=== PATIENT | female | born 1975 | race Caucasian/White ===

== ENCOUNTER 2021-01-16 06:51 | Outpatient (REF) | payer OTHER, SELFPAY ==
[2021-01-16 11:36] LABS: Glucose Urine UA NEG (NEG); Leukocyte Esterase Urine NEG (NEG); Nitrite Urine NEG (NEG); Specific Gravity - Urine 1.025 (1.005-1.025); Urine Blood NEG (NEG); Urine Ketones NEG (NEG); Urine Protein NEG (NEG-TRACE)
[2021-01-16 11:49] LABS: Appearance Urine HAZY; Color Urine YELLOW
[2021-01-16 12:14] LABS: Bacteria Urine TRACE /LPF; Mucus Urine TRACE /LPF; RBC Urine 0 /HPF (0); Squamous Epithelial Cell Urine 2+ /LPF; WBC Urine 0 /HPF (0-4)
[2021-01-16 12:22] LABS: Alanine Aminotransferase 11 U/L (0-31); Albumin Level 4.1 g/dL (3.5-5.0); Alkaline Phosphatase 80 U/L (39-117); Anion Gap 13 (12-20); Aspartate Amino Transferase 13 U/L (5-31); Bilirubin Total 0.6 mg/dL (0.0-1.0); Blood Urea Nitrogen 10 mg/dL (9-16); Calcium 9.1 mg/dL (8.4-10.2); Carbon Dioxide 28 mmol/L (22-29); Chloride 103 mmol/L (96-108); Cholesterol 145 mg/dL; Estimated Glomerular Filt Rate > 60; Glucose Fasting 77 mg/dL (60-99); HDL Cholesterol 62 mg/dL; LDL Cholesterol Calculated 72 mg/dl; Potassium 4.7 mmol/L (3.3-5.1); Sodium 139 mmol/L (135-145); Total Protein 6.6 g/dL (6.5-8.0); Triglycerides 56 mg/dL
[2021-01-16 12:24] LABS: TSH reflex Free T4 1.84 uIU/mL (0.32-4.0); Vitamin D 25-OH Total 20.2 ng/mL (>30)
== END 2021-01-16 06:52 | disposition home or self-care (01) ==
LOC: HO.HMGCLDS 06:51
PROVIDERS: PCP Nurse Practitioner Family; Visit Provider Nurse Practitioner Family
DX: Z00.00 Encounter for general adult medical examination without abnormal findings (principal); Z13.21 Encounter for screening for nutritional disorder
CPT/HCPCS: 36415; 80053; 80061; 81001; 82306; 84443

== ENCOUNTER 2022-01-12 08:06 | Outpatient (REF) | payer OTHER, SELFPAY ==
[2022-01-12 11:13] LABS: MANUAL DIFF FLAG NO
[2022-01-12 11:14] LABS: Basophils Percent Auto 0.5 % (0-2); Eosinophils Absolute Auto 0.1 X10*3/uL (0.0-0.4); Eosinophils Percent Auto 1.8 % (0-4); Hematocrit 42.4 % (37.0-47.0); Hemoglobin 13.7 g/dl (12.0-16.0); Imm Gran Abs Auto 0.02 X10*3/uL (0.00-0.03); Imm Gran Pct Auto 0.4 % (0.0-0.4); Lymphocytes Absolute Auto 1.7 X10*3/uL (1.2-4.9); Lymphocytes Percent Auto 30.7 % (20-40); Mean Corpuscular HGB Conc 32.3 g/dl (31.0-35.0); Mean Corpuscular Hemoglobin 27.7 pg (27.0-33.0); Mean Corpuscular Volume 85.7 fL (80.0-98.0); Mean Platelet Volume 11.4 fL (9.4-12.3); Monocytes Absolute Auto 0.5 X10*3/uL (0.1-1.2); Monocytes Percent Auto 9.4 % (2-11); Neutrophils Absolute Auto 3.2 x10*3/uL (2.0-8.3); Neutrophils Percent Auto 57.2 % (45-73); Platelet Count 289 X10*3/uL (160-400); Red Blood Count 4.95 X10*6/uL (4.20-5.50); Red Cell Distribution Width 13.3 % (11.0-16.0); White Blood Count 5.7 X10*3/uL (4.8-10.8)
[2022-01-12 11:18] LABS: Appearance Urine CLEAR; Color Urine YELLOW; Glucose Urine UA NEG (NEG); Leukocyte Esterase Urine NEG (NEG); Nitrite Urine NEG (NEG); PH 6.5 (5.0-8.0); Specific Gravity - Urine 1.015 (1.005-1.025); Urine Blood NEG (NEG); Urine Ketones NEG (NEG); Urine Protein NEG (NEG-TRACE)
[2022-01-12 11:46] LABS: Alanine Aminotransferase 13 U/L (0-31); Albumin Level 4.1 g/dL (3.5-5.0); Alkaline Phosphatase 69 U/L (39-117); Anion Gap 12 (12-20); Aspartate Amino Transferase 11 U/L (5-31); Bilirubin Total 0.4 mg/dL (0.0-1.0); Blood Urea Nitrogen 12 mg/dL (9-16); Calcium 9.2 mg/dL (8.4-10.2); Carbon Dioxide 26 mmol/L (22-29); Chloride 105 mmol/L (96-108); Cholesterol 165 mg/dL; Estimated Glomerular Filt Rate > 60; Glucose Fasting 79 mg/dL (60-99); HDL Cholesterol 68 mg/dL; LDL Cholesterol Calculated 84 mg/dl; Potassium 4.3 mmol/L (3.3-5.1); Sodium 139 mmol/L (135-145); Total Protein 6.8 g/dL (6.5-8.0); Triglycerides 66 mg/dL
[2022-01-12 12:08] LABS: TSH reflex Free T4 2.28 uIU/mL (0.32-4.0)
== END 2022-01-12 08:07 | disposition home or self-care (01) ==
LOC: HO.HMGCLDS 08:06
PROVIDERS: PCP Nurse Practitioner Family; Visit Provider Nurse Practitioner Family
DX: Z00.00 Encounter for general adult medical examination without abnormal findings (principal)
CPT/HCPCS: 36415; 80053; 80061; 81003; 84443; 85025

== ENCOUNTER 2022-02-06 07:56 | Outpatient (REF) | payer OTHER, SELFPAY ==
--- NOTE | ~2022-02-06 | MM_ITS ---
EXAMINATION: MM SCREENING DIGITAL BREAST TOMOSYNTHESIS, BILATERAL CLINICAL INFORMATION: Screening. Asymptomatic. The lifetime risk of breast cancer based on the Tyrer-Cuzick Model is 8%. COMPARISON: Outside mammography: 06/15/2020, 02/22/2019 ([facility]). TECHNIQUE: Digital breast tomosynthesis is performed in both the craniocaudal and mediolateral oblique views along with computer-aided detection (CAD). Synthesized 2D images are generated from the tomosynthesis. FINDINGS: The breasts are heterogeneously dense, which may obscure small masses (ACR BI-RADS breast composition Category c). There are no significant masses, abnormal calcifications, or other abnormalities. Parenchymal pattern is similar to prior outside exams. The axilla and skin contours are unremarkable. MM/MM tomosynthesis screening BI IMPRESSION: No mammographic evidence of malignancy. ASSESSMENT: BI-RADS 1: Negative RECOMMENDATION: Routine annual mammography screening. This patient's information was entered into a reminder system with a target due date for their next mammogram.
== END 2022-02-06 07:57 | disposition home or self-care (01) ==
LOC: HO.MAMMO 07:56
PROVIDERS: PCP Nurse Practitioner Family; Visit Provider Nurse Practitioner Family
DX: Z12.31 Encounter for screening mammogram for malignant neoplasm of breast (principal)
CPT/HCPCS: 77063; 77067

== ENCOUNTER 2022-12-05 08:54 | Outpatient (REF) | payer OTHER, SELFPAY ==
[2022-12-05 11:09] LABS: MANUAL DIFF FLAG NO
[2022-12-05 11:21] LABS: Basophils Percent Auto 0.7 % (0-2); Eosinophils Absolute Auto 0.1 X10*3/uL (0.0-0.4); Eosinophils Percent Auto 1.5 % (0-4); Hematocrit 42.2 % (37.0-47.0); Hemoglobin 13.6 g/dl (12.0-16.0); Imm Gran Abs Auto 0.02 X10*3/uL (0.00-0.03); Imm Gran Pct Auto 0.4 % (0.0-0.4); Lymphocytes Absolute Auto 1.5 X10*3/uL (1.2-4.9); Lymphocytes Percent Auto 28.2 % (20-40); Mean Corpuscular HGB Conc 32.2 g/dl (31.0-35.0); Mean Corpuscular Hemoglobin 27.9 pg (27.0-33.0); Mean Corpuscular Volume 86.5 fL (80.0-98.0); Mean Platelet Volume 11.5 fL (9.4-12.3); Monocytes Absolute Auto 0.5 X10*3/uL (0.1-1.2); Monocytes Percent Auto 8.6 % (2-11); Neutrophils Absolute Auto 3.3 x10*3/uL (2.0-8.3); Neutrophils Percent Auto 60.6 % (45-73); Platelet Count 297 X10*3/uL (160-400); Red Blood Count 4.88 X10*6/uL (4.20-5.50); Red Cell Distribution Width 13.7 % (11.0-16.0); White Blood Count 5.5 X10*3/uL (4.8-10.8)
[2022-12-05 11:46] LABS: Alanine Aminotransferase 13 U/L (0-31); Albumin Level 4.1 g/dL (3.5-5.0); Alkaline Phosphatase 79 U/L (39-117); Anion Gap 13 (12-20); Aspartate Amino Transferase 11 U/L (5-31); Bilirubin Total 0.5 mg/dL (0.0-1.0); Blood Urea Nitrogen 9 mg/dL (9-16); Calcium 9.1 mg/dL (8.4-10.2); Carbon Dioxide 28 mmol/L (22-29); Chloride 104 mmol/L (96-108); Estimated Glomerular Filt Rate > 60; Glucose Random 79 mg/dL (60-115); Potassium 4.6 mmol/L (3.3-5.1); Sodium 140 mmol/L (135-145); Total Protein 6.6 g/dL (6.5-8.0)
== END 2022-12-05 08:55 | disposition home or self-care (01) ==
LOC: HO.HMGCLDS 08:54
PROVIDERS: PCP Nurse Practitioner Family; Visit Provider Internal Medicine
DX: R10.9 Unspecified abdominal pain (principal); R14.3 Flatulence; R14.0 Abdominal distension (gaseous); R14.2 Eructation
CPT/HCPCS: 36415; 80053; 85025

== ENCOUNTER 2022-12-13 10:08 | Emergency (ER) | payer OTHER, SELFPAY | END 2022-12-13 11:24 | disposition left against medical advice (07) | PROVIDERS: Emergency Provider Emergency Medicine; PCP Nurse Practitioner Family | DX: R10.32 Left lower quadrant pain (principal) ==

== ENCOUNTER 2023-02-19 11:11 | Outpatient (REF) | payer OTHER, SELFPAY ==
[2023-02-19 14:21] LABS: Alanine Aminotransferase 13 U/L (0-31); Albumin Level 4.3 g/dL (3.5-5.0); Alkaline Phosphatase 67 U/L (39-117); Anion Gap 13 (12-20); Aspartate Amino Transferase 14 U/L (5-31); Bilirubin Total 0.5 mg/dL (0.0-1.0); Blood Urea Nitrogen 10 mg/dL (9-16); Calcium 9.5 mg/dL (8.4-10.2); Carbon Dioxide 26 mmol/L (22-29); Chloride 106 mmol/L (96-108); Cholesterol 156 mg/dL; Estimated Glomerular Filt Rate > 60; Glucose Fasting 86 mg/dL (60-99); HDL Cholesterol 68 mg/dL; LDL Cholesterol Calculated 79 mg/dl; Potassium 4.3 mmol/L (3.3-5.1); Sodium 141 mmol/L (135-145); Total Protein 7.1 g/dL (6.5-8.0); Triglycerides 48 mg/dL
[2023-02-19 14:40] LABS: TSH reflex Free T4 1.74 uIU/mL (0.32-4.0)
== END 2023-02-19 11:12 | disposition home or self-care (01) ==
LOC: HO.HMGCLDS 11:11
PROVIDERS: PCP Nurse Practitioner Family; Visit Provider Nurse Practitioner Family
DX: Z00.00 Encounter for general adult medical examination without abnormal findings (principal); E55.9 Vitamin D deficiency, unspecified; Z13.220 Encounter for screening for lipoid disorders; Z13.29 Encounter for screening for other suspected endocrine disorder
CPT/HCPCS: 36415; 80053; 80061; 81003; 82306; 84443; 85025

== ENCOUNTER 2023-12-27 07:35 | Outpatient (REF) | payer OTHER, SELFPAY ==
--- NOTE | ~2023-12-27 | XR_ITS ---
EXAMINATION: XR SHOULDER, LEFT CLINICAL INFORMATION: Left shoulder pain. COMPARISON: None available. TECHNIQUE: AP external rotation, Grashey, scapular Y, and axillary views of the left shoulder. FINDINGS: Glenohumeral and acromioclavicular alignment is anatomic with normal joint space. No displaced fracture or dislocation. No abnormal soft tissue calcifications. XR/XR shoulder LT min 2V IMPRESSION: No acute abnormality.
== END 2023-12-27 07:36 | disposition home or self-care (01) ==
LOC: HO.HMGCX 07:35
PROVIDERS: PCP Nurse Practitioner Family; Visit Provider Nurse Practitioner Family
DX: M25.512 Pain in left shoulder (principal)
CPT/HCPCS: 73030

== ENCOUNTER 2024-01-20 07:43 | Outpatient (REF) | payer OTHER, SELFPAY ==
--- NOTE | 2024-01-20 07:45 | EMG_ITS ---
Left median and ulnar motor and sensory studies were performed. Left median and lateral antecubital brachial and radial sensory studies were performed and needle examination was performed. IMPRESSION: 1. Mild left median neuropathy across carpal tunnel. 2. Mild left ulnar neuropathy across cubital tunnel. 3. No evidence of radiculopathy or plexopathy. MD ADA Watkins/NIRU / [id number]
== END 2024-01-20 07:44 | disposition home or self-care (01) ==
LOC: HO.NEURO 07:43
PROVIDERS: PCP Nurse Practitioner Family; Visit Provider Nurse Practitioner Family
DX: R20.0 Anesthesia of skin (principal)
CPT/HCPCS: 95886; 95910

== ENCOUNTER 2024-02-02 12:37 | Outpatient (REF) | payer OTHER, SELFPAY ==
--- NOTE | ~2024-02-02 | XR_ITS ---
EXAMINATION: XR CERVICAL SPINE CLINICAL INFORMATION: Left upper limb pain COMPARISON: None available. TECHNIQUE: 3 views of the cervical spine were obtained. FINDINGS: Vertebral bodies are well aligned and intervertebral discs are preserved. Pedicles are intact. There is very mild narrowing of C6-C7 and C7-T1 with grade 1 anterior listhesis of C7 over T1 and facets arthropathy. XR/XR cervical spine 2V IMPRESSION: Mild degenerative changes
== END 2024-02-02 12:38 | disposition home or self-care (01) ==
LOC: HO.HMGCX 12:37
PROVIDERS: PCP Nurse Practitioner Family; Visit Provider Nurse Practitioner Family
DX: G56.02 Carpal tunnel syndrome, left upper limb (principal); G56.22 Lesion of ulnar nerve, left upper limb; R20.0 Anesthesia of skin
CPT/HCPCS: 72040

== ENCOUNTER 2024-02-03 13:28 | Outpatient (AMB) | payer OTHER, SELFPAY ==
--- NOTE | 2024-02-03 14:04 | MHC.OFFVIS ---
Intake Visit Reasons: New pt - left hand numbness/ emg done Intake Note: Judy is a 49 year old right hand dominant female who presents today as a new patient for a evaluation of her left hand numbness. EMG was done on 01/20/24. She states that her numbness is off and on for a couple months. Patient reports that her numbness is worse at night or through out the day. She expresses that he main problem is in her left shoulder which has been going on since October. Pain started when she caught herself from getting up from her desk. Allergies No Known Allergies Allergy (Verified 02/03/24 14:09) HPI HPI New pt - left hand numbness/ emg done: Details: 49-year-old right hand dominant female who presents in the office today, as a new patient, for an evaluation of left hand numbness. The patient sent a message to her PCP on 12/18/2023 with a complaint of left shoulder to left elbow pain that increases at night and limited ROM. X-rays and EMG study were ordered. While in the office today the patient reports intermittent numbness for a couple of months. She claims her numbness at night and throughout the day. Patient reports her main concern is her left shoulder pain which has been present since 10/2023. She reports the pain is located on the lateral aspect of the left shoulder. She states this pain began when she caught herself getting up from her desk. FOR[facility]LY [facility], [facility] Family History Maternal Grandfather Colon cancer Social History Housing: House Alcohol intake: never Patient Tobacco Use Status: Never used Tobacco e-Cigarette/Vaping Use: Never Used Second Hand Smoke Exposure: No service: No Current occupational status: employed Current occupation: [employer] Current occupational exposures/hazards: No Cognitive needs: No Hearing needs: No Vision needs: No Review of Systems Const All systems reviewed & are unremarkable except as noted in HPI and below Physical Exam Const General: cooperative and no acute distress Orientation/consciousness: patient oriented x3 Resp Effort & Inspection: normal respiratory effort and able to speak in complete sentences Cardio Peripheral pulses: Peripheral pulses 2+ throughout Skin General skin exam: no rashes or lesions noted Neuro General: patient oriented x3 Extrem Other: Left shoulder: Forward flexion and abduction to 80 degrees. External rotation to neutral. Able to reach greater trochanter. Pain with cross-body reach. Unable to assess empty can or drop arm due to ROM restrictions. NVI. Office Procedures Joint Injection/Drain Joint Injection/Drain Primary Site: left shoulder Prep: site was prepped using aseptic technique, ethochloride spray was applied and injection warnings given Injected: 80 mg of, DepoMedrol, with 8 mL of (2% plain lido ) and in the subcromial space Approach Used: posterolateral Procedure: The patient tolerated the procedure well, but had some pain with the injection and there was some relief with the local anesthesia Coding 59164 - Large joint Procedure code (CPT) selection complete Assessment & Plan Assessment & Plan (1) Adhesive capsulitis of left shoulder: Code(s): M75.02 - Adhesive capsulitis of left shoulder Category: Medical Plan Ms. Hennessy is a 49-year-old right hand dominant female who presents in the office today, as a new patient, for an evaluation of left hand numbness. The patient sent a message to her PCP on 12/18/2023 with a complaint of left shoulder to left elbow pain that increases at night and limited ROM. X-rays and EMG study were ordered. While in the office today the patient reports intermittent numbness for a couple of months. She claims her numbness at night and throughout the day. Patient reports her main concern is her left shoulder pain which has been present since 10/2023. She reports the pain is located on the lateral aspect of the left shoulder. She states this pain began when she caught herself getting up from her desk. The patient was offered a cortisone injection in the left shoulder with 80 mg of DepoMedrol. The patient was explained the risk, benefits, and alternatives to receiving this injection. After receiving consent for the injection, the patient had the procedure done while in the office today. The patient tolerated the procedure well with no complications. A referral to physical therapy was made in the office today. Follow-up will be in six weeks, or sooner if needed EMG study of the left upper extremity, obtained on 01/20/2024, revealed: 1. Mild left median neuropathy across carpal tunnel. 2. Mild left ulnar neuropathy across cubital tunnel. 3. No evidence of radiculopathy or plexopathy. X-rays of the left shoulder, obtained on 12/27/2023, revealed: No acute fractures or dislocations. Orders: Orders PT Evaluation and Treatment Today M75.02 - Adhesive capsulitis of left shoulder Patient Instructions: Scribed by Yasmin Childs medical legal investigator, for Iraida Marisoleugenio MONTEMAYOR on 02/03/2024 at 1:41 pm, EST. Coding Level of Care Code New Pt Level 4 (09677) Diagnoses Adhesive capsulitis of left shoulder M75.02 CPT Codes Coding - 92354 Large joint: 82120 - Large joint ([id number])
== END 2024-02-03 14:51 | disposition home or self-care (01) ==
PROVIDERS: PCP Nurse Practitioner Family; Visit Provider Physician Assistant
DX: M75.02 Adhesive capsulitis of left shoulder (principal)
CPT/HCPCS: 20610; 99204

== ENCOUNTER → 2024-02-03 13:28 | Outpatient (BNVA) | payer OTHER, SELFPAY | PROVIDERS: PCP Nurse Practitioner Family; Visit Provider Physician Assistant | DX: M75.02 Adhesive capsulitis of left shoulder (principal) | CPT/HCPCS: 20610; J1010 ==

== ENCOUNTER 2024-02-17 08:02 | Outpatient (AMB) | payer OTHER, SELFPAY ==
--- NOTE | 2024-02-17 08:04 | MHC.PC.OV ---
Vital Signs 02/17/24 08:08 Height 5 ft 4 in Weight 168 lb BMI 28.8 BP 104/62 Blood Pressure Location Rt brachial Position Sitting Pulse 79 Pulse Source Pulse Oximeter Pulse Oximetry (%) 99 Oxygen Delivery Method Room Air Intake Visit Reasons: PE Intake Note: pt is here for annual PE. Mammogram,pap,colonoscopy 4 years ago. Allergies No Known Allergies Allergy (Verified 02/17/24 08:27) Medication List - Last Reconciled 02/17/24 by FLYNN Narvaez No Known Home Meds Tobacco use date assessed: 02/17/24 Dental Screening Dental Screen Date: 02/17/24 Did you have a dental visit in the last 12 months?: Yes Did you have a dental problem in the last 6 months where you did not have access to dental care?: No Was dental information given to patient?: Patient has dentist HPI HPI Comments History of Present Illness Details Patient is a 49-year-old female in today for physical exam 1 meeting for the 1st time. Patient had colonoscopy in 2019, will obtain records. Per patient colonoscopy report was clear with recommendation for 10 year follow-up. Medical request for report has been sent. Patient is due for mammogram will order. Patient would like to switch [facility], will refer. Patient is due for tetanus vaccine, will administer today. Patient has a past medical history significant for: Frozen left shoulder-has establish care with Ortho. Patient is currently going through physical therapy. States she still having pain especially at nights making it difficult to sleep. Will give meloxicam and cyclobenzaprine to be taken as directed. 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 Patient will get referral to Dermatology. Vitamin-D deficiency-will draw labs today including vitamin-D. IBS-patient has symptoms of mild constipation, utilizes senna with moderate effect PFSH Surgical History No pertinent past surgical history Family History Maternal Grandfather Colon cancer Social History Housing: House Alcohol intake: never Patient Tobacco Use Status: Never used Tobacco e-Cigarette/Vaping Use: Never Used Second Hand Smoke Exposure: No service: No Current occupational status: employed Current occupation: [employer] Current occupational exposures/hazards: No Cognitive needs: No Hearing needs: No Vision needs: No Questionnaire PHQ-9 Over the last 2 weeks, how often have you been bothered by any of the following problems? 1. Little interest or pleasure in doing things: not at all 2. Feeling down, depressed, or hopeless: not at all 3. Trouble falling or staying asleep, or sleeping too much: not at all 4. Feeling tired or having little energy: not at all 5. Poor appetite or overeating: not at all 6. Feeling bad about yourself - or that you are a failure or have let yourself or your family down: not at all 7. Trouble concentrating on things, such as reading the newspaper or watching television: not at all 8. Moving or speaking so slowly that other people could have noticed. Or the opposite - being so fidgety or restless that you have been moving around a lot more than usual: not at all 9. Thoughts that you would be better off or of hurting yourself in some way: not at all Total score: 0 Depression Screening Interpretation: Negative Depression Screening Done: Yes 88381 - PHQ-9 Billing: Yes Source: Developed by Drs. Jose Lundberg, Brittni Grande, Spencer Arevalo and colleagues, with an educational maykel from [employer] (formerly [employer]). Thrive Questionnaire Date Thrive assessed: 02/17/24 I am a: Patient What is your living situation today?: I have a steady place to live Within the past 12 months, did the food you bought not last and you didn't have the money to get more?: Never true Within the past 12 months, did you worry whether your food would run out before you got money to buy more?: Never true Do you have trouble paying for medicines?: No Do you have trouble getting transportation to medical appointments?: No Do you have trouble paying your heating and electricity bill?: No Do you have trouble taking care of your child, family member or friend?: No Do you have trouble with day-to-day activities such as bathing, preparing meals, shopping, managing finances, etc.?: No Are you currently unemployed and looking for a job?: No Are you interested in more education?: No Please select the resources that you would like help with: None Currently or been in a relationship where the following occur: No concerns reported THRIVE Score: 0 AUDIT C Alcohol Use Questionnaire (AUDIT-C) 1. How often do you have a drink containing alcohol?: Never Total Score: 0 MANSI-7 AMB Questionnaire MANSI-7 Date MANSI - 7 assessed: 02/17/24 Feeling nervous, anxious, or on edge: 0 = Not at all Not being able to stop or control worryin = Not at all Worrying too much about different things: 0 = Not at all Trouble relaxin = Not at all Being so restless that it is hard to sit still: 0 = Not at all Becoming easily annoyed or irritable: 0 = Not at all Feeling afraid as if something awful might happen: 0 = Not at all Total MANSI-7 score (0-4 normal; 5-9 mild; 10-14 moderate; 15-21 severe): 0 Source: Developed by Drs. Jose Lundberg, Brittni Grande, Spencer Arevalo and colleagues, with an educational maykel from [employer] (formerly [employer]). MANSI-7 Assessment Billing MANSI-7 Assessment Tool: MANSI-7 Assessment 86588 Review of Systems Const All systems reviewed & are unremarkable except as noted in HPI and below Physical exam (Primary Care) Vital Signs: Last Vital Signs Pulse 79 02/17/24 08:08 BP 104/62 02/17/24 08:08 Pulse Ox 99 02/17/24 08:08 Oxygen Delivery Method Room Air 02/17/24 08:08 Care Plan Goal for BP management: Blood pressure is controlled. BMI result Body Mass Index 28.8 Tobacco/Smoking Status: Tobacco use Status Tobacco use date assessed 02/17/24 02/17/24 08:05 Patient Tobacco Use Status Never used Tobacco 02/17/24 08:05 e-Cigarette/Vaping Use Never Used 02/17/24 08:05 PHQ-9: PHQ-9 Score PHQ-9: Total score 0 02/17/24 08:14 Depression Screening Interpretation: Negative Thrive Assessment: Date of Thrive Assessment Date Thrive assessed 02/17/24 02/17/24 08:14 Currently or been in a relationship where the following occur: No concerns reported Advance Care Planning discussion: Completed/Scanned Date of discussion: 02/17/24 Who was present: MA Forms completed: Health Care Proxy Time spent: 16-45 minutes Actual minutes spent: 17 Const Other: Appearance: Alert.? Oriented X3.? No acute distress.? Head: Normocephalic, atraumatic, no step-offs or deformities Eyes: Pupils equal, round and reactive to light.? ENT: Pharynx normal.?TM intact and pearly sherman. Neck: Normal inspection.? Neck supple.? CVS: Normal heart rate and rhythm.? Pulses normal.? Respiratory: No respiratory distress.? Breath sounds normal.? Abdomen: Soft and nontender.? Skin: Skin warm and dry.? Normal skin color.? Normal skin turgor.? Extremities: No lower extremity edema.? No calf ttp. 5/5 strength to bilateral upper and lower extremities Back: No midline tenderness, no C-spine tenderness, full range of motion, no CVA tenderness bilaterally Neuro: Oriented X 3.? No motor deficit.? No sensory deficit. CN 2-12 intact Immunizations Boostrix Tdap 2.5 Lf unit-8 mcg-5 Lf/0.5 mL intramuscular syringe Performing Provider: FLYNN Narvaez Performing Location: [facility] [place] [facility] Administered by: Joey Elena CMA on 02/17/24 08:45 Dose Route Admin Location Dispensed Lot Number Expiration Date [employer] 0.5 mL IM Right Deltoid 0.5 mL [id number] 02/17/26 [id number] Enable Injections VIS Given Date VIS Provided VIS Publication Date 02/17/24 Single Vaccine 21 Eligibility Eligibility Date Funding Source Not [facility] Eligible 02/17/24 Private Assessment and Plan Assessment & Plan (1) Encounter for physical examination: Comment: Patient had colonoscopy in 2019, will obtain records. Per patient colonoscopy report was clear with recommendation for 10 year follow-up. Medical request for report has been sent. Patient is due for mammogram will order. Patient would like to switch [facility], will refer. Patient is due for tetanus vaccine, will administer today. Patient has a past medical history significant for: Frozen left shoulder-has establish care with Ortho. Patient is currently going through physical therapy. States she still having pain especially at nights making it difficult to sleep. Will give meloxicam and cyclobenzaprine to be taken as directed. 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 Patient will get referral to Dermatology. Vitamin-D deficiency-will draw labs today including vitamin-D. IBS-patient has symptoms of mild constipation, utilizes senna with moderate effect Will order fasting labs. Code(s): Z00.00 - Encounter for general adult medical examination without abnormal findings Plan: will follow up with lab results. Orders: Orders Vitamin B6 Today Z13.21 - Encounter for screening for nutritional disorder UA CC w/rflx Micro + Cult Today Z13.89 - Encounter for screening for other disorder Lipid Panel Today Z13.21 - Encounter for screening for nutritional disorder Comprehensive Met. Panel Today Z91.89 - Other specified personal risk factors, not elsewhere classified MM tomosynthesis screening BI Today Z12.31 - Encounter for screening mammogram for malignant neoplasm of breast Vitamin D 25-OH (D2 and D3) Today Z13.21 - Encounter for screening for nutritional disorder Vitamin B12 Today Z13.21 - Encounter for screening for nutritional disorder TSH reflex Free T4 Today Z13.29 - Encounter for screening for other suspected endocrine disorder Complete Blood Count Auto Diff Today Z13.0 - Encounter for screening for diseases of the blood and blood-forming organs and certain disorders involving the immune mechanism TDaP Immunization Today Z23 - Encounter for immunization Referrals PEDIATRIC CARDIOLOGIST Referral Z12.4 - Encounter for screening for malignant neoplasm of cervix Medications: New cyclobenzaprine 5 mg PO BEDTIME PRN 20 tabs 0RF muscle spasm meloxicam Do not combine with other NSAIDS 15 mg PO DAILY 20 tabs 0RF Coding Level of Care Code Est Pt Prev Care 40-64y(29450) Diagnoses Encounter for physical examination Z00.00 Additional Codes MANSI-7 Assessment Billing - MANSI-7 Assessment Tool: MANSI-7 Assessment 13775 ([id number]) Vital Signs *Quality* - Advance Care Planning discussion: Completed/Scanned ([id number]) Vital Signs *Quality* - Time spent: 16-45 minutes ([id number]) Time Spent (min) 32
[2024-02-17 08:08] VITALS: BP 104/62; PULSE 79; O2SAT 99; BMI 28.8
== END 2024-02-17 08:46 | disposition home or self-care (01) ==
PROVIDERS: PCP Nurse Practitioner Family; Visit Provider Nurse Practitioner Primary Care
DX: Z00.00 Encounter for general adult medical examination without abnormal findings (principal); Z23 Encounter for immunization
CPT/HCPCS: 1123F; 90471; 90715; 99396; 99497

== ENCOUNTER 2024-02-17 08:47 | Outpatient (REF) | payer OTHER, SELFPAY ==
[2024-02-17 11:04] LABS: MANUAL DIFF FLAG NO
[2024-02-17 11:18] LABS: Appearance Urine Clear; Color Urine Yellow; Glucose Urine UA Negative (Negative); Leukocyte Esterase Urine Negative (Negative); Nitrite Urine Negative (Negative); Specific Gravity - Urine 1.015 (1.005-1.025); Urine Blood Negative (Negative); Urine Ketones Negative (Negative); Urine Protein Negative (Neg-Trace)
[2024-02-17 11:19] LABS: Basophils Percent Auto 0.4 % (0-2); Eosinophils Absolute Auto 0.1 X10*3/uL (0.0-0.4); Eosinophils Percent Auto 1.4 % (0-4); Hematocrit 42.1 % (37.0-47.0); Hemoglobin 13.6 g/dl (12.0-16.0); Imm Gran Abs Auto 0.02 X10*3/uL (0.00-0.03); Imm Gran Pct Auto 0.4 % (0.0-0.4); Lymphocytes Absolute Auto 1.6 X10*3/uL (1.2-4.9); Mean Corpuscular HGB Conc 32.3 g/dl (31.0-35.0); Mean Corpuscular Hemoglobin 28.5 pg (27.0-33.0); Mean Corpuscular Volume 88.3 fL (80.0-98.0); Mean Platelet Volume 11.2 fL (9.4-12.3); Monocytes Absolute Auto 0.5 X10*3/uL (0.1-1.2); Monocytes Percent Auto 9.8 % (2-11); Neutrophils Absolute Auto 3.3 x10*3/uL (2.0-8.3); Platelet Count 277 X10*3/uL (160-400); Red Blood Count 4.77 X10*6/uL (4.20-5.50); Red Cell Distribution Width 13.5 % (11.0-16.0); White Blood Count 5.5 X10*3/uL (4.8-10.8)
[2024-02-17 11:36] LABS: Alanine Aminotransferase 11 U/L (0-31); Albumin Level 4.2 g/dL (3.5-5.0); Alkaline Phosphatase 69 U/L (39-117); Anion Gap 12 (12-20); Aspartate Amino Transferase 11 U/L (5-31); Bilirubin Total 0.4 mg/dL (0.0-1.0); Blood Urea Nitrogen 10 mg/dL (9-16); Calcium 9.4 mg/dL (8.4-10.2); Carbon Dioxide 29 mmol/L (22-29); Chloride 105 mmol/L (96-108); Cholesterol 157 mg/dL (<200); Estimated Glomerular Filt Rate > 60; Glucose Random 85 mg/dL (60-115); HDL Cholesterol 69 mg/dL (>40); LDL Cholesterol Calculated 71 mg/dL (<100); Potassium 4.6 mmol/L (3.3-5.1); Sodium 141 mmol/L (135-145); Total Protein 6.9 g/dL (6.5-8.0); Triglycerides 89 mg/dL (<150)
[2024-02-17 11:53] LABS: TSH reflex Free T4 2.62 uIU/mL (0.32-4.0)
[2024-02-17 12:02] LABS: Vitamin B12 293 pg/mL (200-900)
[2024-02-21 13:43] LABS: Vitamin D 25-OH, D2 <4 ng/mL; Vitamin D 25-OH, D3 21 ng/mL; Vitamin D 25-OH, Total 21 ng/mL (30-100)
[2024-02-23 11:29] LABS: Vitamin B6 4.4 ng/mL (2.1-21.7)
== END 2024-02-17 08:48 | disposition home or self-care (01) ==
LOC: HO.HMGCLDS 08:47
PROVIDERS: PCP Nurse Practitioner Family; Visit Provider Nurse Practitioner Primary Care
DX: Z13.0 Encounter for screening for diseases of the blood and blood-forming organs and certain disorders involving the immune mechanism (principal); Z13.21 Encounter for screening for nutritional disorder; Z91.89 Other specified personal risk factors, not elsewhere classified; Z13.89 Encounter for screening for other disorder; Z13.29 Encounter for screening for other suspected endocrine disorder
CPT/HCPCS: 36415; 80053; 80061; 81003; 82306; 82607; 84207; 84443; 85025

== ENCOUNTER 2024-02-27 15:01 | Outpatient (REF) | payer OTHER, SELFPAY ==
--- NOTE | ~2024-02-27 | MM_ITS ---
EXAMINATION: MM SCREENING DIGITAL BREAST TOMOSYNTHESIS, BILATERAL CLINICAL INFORMATION: Screening. Asymptomatic. COMPARISON: Mammography: This study is compared with prior exams dating back to 2019. TECHNIQUE: Digital breast tomosynthesis is performed in both the craniocaudal and mediolateral oblique views along with computer-aided detection (CAD). Synthesized 2D images are generated from the tomosynthesis. FINDINGS: The breasts are heterogeneously dense, which may obscure small masses (ACR BI-RADS breast composition Category c). There is an asymmetry in the to 4:00 region of the left breast at a middle depth. Additional mammographic and targeted sonographic imaging of this finding is advised. In the right breast, there are no significant masses, abnormal calcifications, or other abnormalities. MM/MM tomosynthesis screening BI IMPRESSION: Left breast asymmetry warrants additional mammographic and targeted sonographic imaging. No mammographic signs of malignancy right breast. ASSESSMENT: BI-RADS BI-RADS 0 - Incomplete: Needs additional Imaging. RECOMMENDATION: 1. Additional views of the left breast. 2. Targeted ultrasound is indicated. 3. Radiology department staff will contact the patient for additional imaging. Additional Imaging required This examination should not preclude the clinical evaluation of a suspicious palpable abnormality. This patient's information was entered into a reminder system with a target due date for their next mammogram.
== END 2024-02-27 15:02 | disposition home or self-care (01) ==
LOC: HO.MAMMO 15:01
PROVIDERS: PCP Nurse Practitioner Family; Visit Provider Nurse Practitioner Primary Care
DX: Z12.31 Encounter for screening mammogram for malignant neoplasm of breast (principal)
CPT/HCPCS: 77063; 77067

== ENCOUNTER → 2024-02-27 15:30 | Outpatient (BNV) | payer OTHER, SELFPAY | PROVIDERS: PCP Nurse Practitioner Family; Visit Provider Radiology Diagnostic Radiology | DX: Z12.31 Encounter for screening mammogram for malignant neoplasm of breast (principal) | CPT/HCPCS: 77063; 77067 ==

== ENCOUNTER 2024-03-22 10:21 | Outpatient (REF) | payer OTHER, SELFPAY ==
[2024-03-24 13:08] LABS: HPV mRNA E6/E7 Not Detected (Not Detected)
== END 2024-03-22 10:22 | disposition home or self-care (01) ==
LOC: HO.LNP 10:21
PROVIDERS: PCP Nurse Practitioner Family; Visit Provider Advanced Practice Midwife
DX: Z01.419 Encounter for gynecological examination (general) (routine) without abnormal findings (principal); Z11.51 Encounter for screening for human papillomavirus (HPV)
CPT/HCPCS: 87624; 88175

== ENCOUNTER 2024-03-22 10:21 | Outpatient (AMB) | payer OTHER, SELFPAY ==
--- NOTE | 2024-03-22 10:42 | A.OFFVIS_ITS ---
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 Ref Information Interpreted: clinical only Peoplesoft Hr Developer: Peoplesoft Hr Developer Present Allergies No Known Allergies Allergy (Verified 03/22/24 10:45) Medication List - Last Reconciled 03/22/24 by Laya Martinez CNM No Known Home Meds Is last menstrual period known: Yes Last menstrual period: 03/01/24 Do you need a note to return to daycare/school/sports/work: No HPI HPI ASSISTANT PROFESSOR OF ENGLISH Annual/PCP Ref: Details: Patient is here for new predictive maintenance specialist visit she has to go to practice at [facility] she thinks she was last seen there a couple years ago she does not have any history of abnormal Paps she had to children that she delivered vaginally completely natural labors that she feels she approach the labor with a positive attitude her 2nd labor was also quick. 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 She likes doing outdoor things with her and kids and lost kayaking or can doing a lot. She has no concerns whatsoever about STDs and no abnormal discharge the only thing she has noticed lately he is that sometimes she does not void for long time during the days then she finds she is getting up at 3 in the he where she P light before going to bed at 11 and she perceiving this is a change. She does not feel like she is having any dysuria or urgency or frequency other than if she holds it too long. She has her tubes tied for control. [facility] Surgical History (Updated 03/22/24 @ 12:10 by Laya Martinez CNM) History of bilateral tubal ligation No pertinent past surgical history Family History Maternal Grandfather Colon cancer Social History Housing: House Alcohol intake: never Patient Tobacco Use Status: Never used Tobacco e-Cigarette/Vaping Use: Never Used Second Hand Smoke Exposure: No service: No Current occupational status: employed Current occupation: [employer] Current occupational exposures/hazards: No Cognitive needs: No Hearing needs: No Vision needs: No Female Reproductive History Menstrual Age of Menarche: 13 Duration of menses: 6-7 days Date of last menstrual period: 03/01/24 control method: permanent sterilization Total pregnancies: 2 Full term: 2 History of abnormal pap smear: No (pap 2021,([facility])negative per patient) Date of Mammogram: 02/27/24 (pending,2021,negative) Physical Exam Vital Signs: Last Vital Signs BP 126/72 03/22/24 10:44 BMI result Body Mass Index 29.2 Const General: healthy appearing, comfortable, no acute distress, well developed and alert Nutritional Appearance: average body habitus Orientation/consciousness: patient oriented x3 Limitations: no limitations HEENT Head: Yes normocephalic Neck Neck: Yes normal visual inspection Chest Chest palpation & inspection: normal inspection of the chest Breast/axilla inspection: normal inspection of the breasts and normal inspection of the axillae Breast/axilla palpation: normal palpation of the breasts and normal palpation of the axillae Resp Effort & Inspection: normal respiratory effort GI Inspection: Yes normal to inspection, No Abdominal wall edema and No distended Palpation (GI): Soft to palpation and nontender Other: External exam within normal limits vagina is pink and moist cervix multiparous pink smooth healthy appearing healthy appearing mucus and mucosa. Uterus small anteverted mobile nontender adnexa nontender not enlarged patient not able to recreate a Kegel I gave her written instructions for her to try to it at home. General: Yes bladder normal to palpation External Female Exam: normal external appearance and normal appearance of the urethra Speculum Exam - Vagina: normal appearance of the vagina, normal palpation and normal vaginal discharge Speculum Exam - Cervix: normal appearance of the cervix, normal palpation and nontender Bimanual exam- vagina & uterus: normal bimanual exam, normal palpation, uterine size normal, bladder normal to palpation, consistency normal, normal palpation, uterine mobility normal, uterine shape normal, No Cervical tenderness present, non-tender and no cervical motion tenderness Bimanual Exam- Adnexa, other: normal adnexae, no masses, normal and No adnexal tenderness Neuro General: patient oriented x3 Assessment & Plan Assessment & Plan (1) Well woman exam with routine gynecological exam: Code(s): Z01.419 - Encounter for gynecological examination (general) (routine) without abnormal findings Category: Medical Plan -----Discussed in this visit the following: healthy balanced diet, regular and consistent exercise, getting recommended health screens, doing the best she can for her particular health concerns, kegel exercises, pap smear screening and followup recommendations, mammography screening and SBE, normal changes in cycles in her life stage--- . I gave instructions on doing Kegel's also discussed at quite some length that some of the changes that she has been ex[eriencing, describing maybe within normal limits however there is often, for hardworking persons to attend to work obligations and not void when needed during the day and then go back and see that she has not gone to the bathroom for several hours. she does note that this happens often in her work day as a teacher. Discussed that cumulatively over time this can impact on muscle tone. She is also dealing with other physical challenges, such as limitation and function for left arm/ shoulder and she has decided to do her own physical therapy for it this time and is not pursuing further diagnoses at this time, for what could be an internal derangement of her shoulder anatomy, however she is doing her physical therapy so I suggested she do physical therapy starting with the Kegel's as well, and I gave her information. she is also going to consider looking up information online as well to guide her in her exercise Orders: Orders PAP + HPV E6/E7 rfx 18/45 Today Z01.419 - Encounter for gynecological examination (general) (routine) without abnormal findings Coding Level of Care Code New Pt Prev Care 40-64y(86039) Diagnoses Well woman exam with routine gynecological exam Z01.419
[2024-03-22 10:44] VITALS: BP 126/72; BMI 29.2
== END 2024-03-22 11:46 | disposition home or self-care (01) ==
LOC: HO.HWSM 10:21
PROVIDERS: PCP Nurse Practitioner Family; Visit Provider Advanced Practice Midwife
DX: Z01.419 Encounter for gynecological examination (general) (routine) without abnormal findings (principal)
CPT/HCPCS: 99386

== ENCOUNTER 2024-03-30 12:50 | Outpatient (REF) | payer OTHER, SELFPAY ==
--- NOTE | ~2024-03-30 | MM_ITS ---
EXAMINATION: MM DIAGNOSTIC DIGITAL BREAST TOMOSYNTHESIS, LEFT US BREAST LIMITED, LEFT MAMMOGRAPHY: CLINICAL INFORMATION: Evaluate oval partially circumscribed mass seen in the CC view only in the upper outer left breast on the screening examination. COMPARISON: Mammography: 02/27/2024, 02/06/2022. 06/15/2020, 02/22/2019. TECHNIQUE: Digital breast tomosynthesis is performed in the following views: Full-field left 3-D mediolateral view, and spot compression 3-D left cc view. This was followed by targeted left breast ultrasound. Computer-aided diagnosis was used for this study. FINDINGS: The breasts are heterogeneously dense, which may obscure small masses (ACR BI-RADS breast composition Category c). Spot compression CC view and full-field left ML view demonstrate persistence of the oval mass which appear circumscribed in the upper outer left breast approximately 2:00 axis. This will be evaluated by ultrasound. No new abnormalities are noted in the left breast. Results are provided to the patient at time of visit by the technologist. ULTRASOUND: CLINICAL INFORMATION: As above. COMPARISON: None relevant. TECHNIQUE: Targeted sonographic evaluation was performed using a high frequency linear transducer. Left breast was interrogated from the 12:00 to the 3:00 axis to include the region of mammographic concern. Selected archived documentation. FINDINGS: LEFT BREAST: Correlating with the mammographic abnormality, there is a simple oval cyst measuring 1.9 by 0.8 x 2.1 cm in the 2:00 axis of the left breast, 6 cm from the nipple. This finding is benign. No additional abnormalities are noted in the upper outer quadrant left breast. MM/MM tomosynthesis added views L IMPRESSION: There are no findings suspicious for malignancy in the left breast. Oval mass correlates with a simple cyst on sonography measuring up to 2.1 cm in the 2:00 axis of the left breast, 6 cm from the nipple. This is benign. No further follow-up recommended. Recommend the patient return to routine annual screening in one year. OVERALL ASSESSMENT: Mammography: BI-RADS 2 - Benign Findings Ultrasound: BI-RADS 2 - Benign Findings RECOMMENDATION: 1 year F/U This patient's information was entered into a reminder system with a target due date for their next mammogram.
== END 2024-03-30 12:51 | disposition home or self-care (01) ==
LOC: HO.MAMMO 12:50
PROVIDERS: PCP Nurse Practitioner Family; Visit Provider Nurse Practitioner Family
DX: N64.89 Other specified disorders of breast (principal)
CPT/HCPCS: 76642; 77061; 77065

== ENCOUNTER → 2024-03-30 13:00 | Outpatient (BNV) | payer OTHER, SELFPAY | PROVIDERS: PCP Nurse Practitioner Family; Visit Provider Radiology Diagnostic Radiology | DX: R92.8 Other abnormal and inconclusive findings on diagnostic imaging of breast (principal) | CPT/HCPCS: 76642; 77061; 77065 ==

== ENCOUNTER 2025-03-04 15:09 | Outpatient (REF) | payer OTHER, SELFPAY ==
--- OUTSIDE RECORDS SUMMARY | 2025-03-04 15:11 | XMS_ITS | Data Portability ---
Author Organization [facility], [address] Address [address] [place] [address] Assessment No assessment recorded. Plan of Treatment Reminders Order Date Submit Date Provider Last Modified By Organization Details Last Modified Time Details Appointments None recorded. Lab None recorded. Referral None recorded. Procedures None recorded. Surgeries None recorded. Imaging XR, ankle, 3 or more view - right ankle 023 023 [facility], [address] [place] [address], [id number], 3 20:02:51 Medication Orders Medrol (Shyam) 4 mg tablets in a dose pack [address] [id number], [address] [place], [place], [phone], 4 09:06:10 Patient TargetsNo targets recorded. Patient Instructions Encounter Date Encounter Id Patient Instructions Last Modified By Organization Details Last Modified Time 03/10/2023 [id number] ankle sprain education [email or web address] Not available 03/10/2023 19:28:27 ankle sprain: rehab exercises [email or web address] Not available 03/10/2023 19:28:27 ankle sprain: care instructions [email or web address] Not available 03/10/2023 19:28:27 Your xray appear s to be negative for a fracture but the official radiology report is pending. If the report is different you will be contacted. Wear the air splint for comfort and support while ambulating. See printed instructions. Follow-up with your doctor in 2 weeks. Seek Emergency Medical evaluation for any worsening symptoms. [email or web address] Not available 03/10/2023 19:28:26 12/06/2023 [id number] shoulder sprain: care instructions Not available 12/06/2023 09:03:36 shoulder stretches: exercises Not available 12/06/2023 09:03:37 You were prescribed a Steroid - Here is some general Information regarding this medication. 1. Make sure you take with Food 2. Do not take right before bedtime -this should be taken during the day because it may make you a little more wired. May keep you from sleeping. 3. Steroids will increase glucose -so if you are a diabetic then you will need to monitor your glucose closely. Please d/c if glucose goes above 300. 4. Do not take this medication with Ibuprofen 5. May cause Heartburn 6. terminal operations supervisor use of steroids can lead to osteoporosis Not available 12/06/2023 09:03:20 Reason for Referral None Reported. Results Created Date Observation Date Name Description Value Unit Range Abnormal Flag Note LastModifiedBy Organization Detail LastModifiedTime 03/10/2003/10/2023 XR, ankle , 3 or more view No observ ation record ed. [email or web address] [facility] [address] [facility] [place], [address], 03/11/2023 08:06:00 Result Notes None recorded. Medical Equipment None Reported. Allergies No known drug allergies Medications Name Sig Start Date Stop Date Status Note LastModified by Organization Details LastModified Time ibuprofen 800 mg tablet TAKE 1 TABLET BY MOUTH EVERY 8 HOURS NEEDED FOR PAIN 03/10 completed Not Available Not Available Not Available senna 8.6 mg tablet TAKE 1 TABLET BY MOUTH 2 TIMES A DAY NEEDED FOR CONSTIPAT ION 03/10 completed Not Available Not Available Not Available prednisone 20 mg tablet TAKE 2 TABLETS BY MOUTH EVERY DAY FOR 5 DAYS 03/10 completed Not Available Not Available Not Available benzonatate 100 mg capsule TAKE 1 CAPSULE BY MOUTH THREE TIMES DAILY NEEDED FOR COUGH 03/10 completed Not Available Not Available Not Available omeprazole 20 mg capsule,del ayed release TAKE 1 CAPSULE BY MOUTH DAILY 03/10 completed Not Available Not Available Not Available methylpredn isolone 4 mg tablets in a dose pack FOLLOW PACKAGE DIRECTION S active Not Available Not Available No t Available albuterol sulfate HFA 90 mcg/actuati on aerosol inhaler INHALE 2 PUFFS BY MOUTH EVERY 6 HOURS NEEDED FOR DIFFICULT BREATHING 12/05 completed Not Available Not Available Not Available amoxicillin 875 mg-potassiu m clavulanate 125 mg tablet TAKE 1 TABLET BY MOUTH TWICE DAILY WITH FOOD FOR 10 DAYS FOR INFECTION 03/10 completed Not Available Not Available Not Available simethicone 80 mg chewable tablet CHEW 1 TABLET BY MOUTH 3 TO 4 TIMES A DAY NEEDED FOR ABDOMINAL DISTENSIO N 03/10 completed Not Available Not Available Not Available Vitals Date Recorded Body height Body mass index (BMI) Body weight Oxygen saturation Oxygen saturation in Arterial blood by Pulse oximetry Heart rate Respiratory rate Body temperature Systolic And Diastolic Provider Name and Address Organization Details Last Updated DateTime 4 162.56 cm 27.5 kg/m2 55533.7 8 g 100 % 100 % 77 /min 18 /min 97.9 [degF] 104/50 mm[Hg] Macarena Vaughn [facility] 4 08:29:46 Date Recorded Body height Body mass index (BMI) Body weight Oxygen saturation Oxygen saturation in Arterial blood by Pulse oximetry Heart rate Respiratory rate Body temperature Systolic And Diastolic Provider Name and Address Organization Details Last Updated DateTime 3 162.56 cm 28.3 kg/m2 61345.7 4 g 100 % 100 % 63 /min 18 /min 97 [degF] 107/68 mm[Hg] SANG RICHARDSON [place] - [facility] 3 18:34:40 Social History Question Answer Notes LastModified by Tiggly Details LastModified Time Tobacco Smoking Status Never Smoker SANG lanier [place] - [facility] 03/10/2023 18:32:53 Have You Had A Flu Shot This Season? Yes [email or web address] Information not available 12/06/2023 What Was The Date Of Your Most Recent Tobacco Screening? 12/06/2023 [email or web address] Information not available 12/06/2023 Sex: Unknown Functional Status Question Answer Note LastModified by Tiggly Details LastModified Time Do you use any illicit or recreational drugs? No Information not available 03/10/2023 Do you or have you ever used any other forms of tobacco or nicotine? No [email or web address] Information not available 12/06/2023 What is your level of alcohol consumption? None Information not available 03/10/2023 Mental Status None recorded. Family History Relationship Description Onset Age of this Age Resolved Age Notes LastModified by Organization Details LastModified Time Father No current problems or disability [email or web address] Not available 18:32:42 Mother No current problems or disability [email or web address] Not available 18:32:42 Medical History No medical history recorded. Gynecological History Statement/Question Response Date of LMP 11/12/2023 LMP Definite Obstetrics History GPAL:G 0 P 0 0 0 0 Immunizations Vaccine Type Date Status Note Provider Nam e and Address Organization Details Recorded Time COVID-19, mRNA, LNP-S, PF, 30 mcg/0.3 mL dose 1 completed SANG lanier, [place] - [facility] 03/10/2023 18:31:27 COVID-19, mRNA, LNP-S, PF, 30 mcg/0.3 mL dose 1 completed SANG lanier, [place] - [facility] 03/10/2023 18:31:27 COVID-19, mRNA, LNP-S, PF, 30 mcg/0.3 mL dose, pascale-sucrose 2 completed SANG lanier, [place] - [facility] 03/10/2023 18:31:27 Influenza, split virus, trivalent, preservative 8 completed SANG lanier, [place] - [facility] 03/10/2023 18:31:27 Past Encounters Encounter ID Performer Location Encounter Start Date Encounter Closed Date Diagnosis/Indication Diagnosis SNOMED-CT Code Diagnosis ICD10 Code Diagnosis Note [id number] [address] [place] [address] 01/24/2022 09:45:21 01/24/2022 12:07:47 [id number] [address] [place] [address] 06/13/2022 16:07:11 06/13/2022 18:45:38 [id number] [place] [address] 07/19/2015 18:59:04 07/19/2015 19:35:35 [id number] [address] [place], [place] [address] 06/09/2022 08:09:28 06/09/2022 08:41:30 [id number] Gina Palumbo MD [address] [place] [address] 03/10/2023 18:08:31 03/10/2023 19:36:03 Sprain of right ankle 3845482253 [id number] S93.401A [id number] Andrea Che MD [address] [place] [address] 12/06/2023 08:12:01 12/06/2023 09:06:02 Sprain of shoulder [id number] S43.402A Reviewed definition of sprain vs. strain with the patient. Patient was instructed to restrict activity, with goal to reduce swelling and pain. Mild injury to be treated at home with anti-infla mmatory and/or pain medication and BOUDREAUX for the first 24-48 hours after injury (Protect from further injury, Rest, Ice for 15-20 min every 60-90 min, Compressio n with elastic bandage, Elevation to prevent swelling.) Apply Biofreeze 2-3 times /day as needed Apply heat to area 2-3 times a day as needed for 5-7 days. After swelling and pain are reduced, patient may begin rehabilita tion exercises to prevent stiffness, improve ROM, and restore tissue/anthony nt flexibilit y and strength. Patient was encouraged to follow up if pain persists or if it is difficult to use on the injury after 2 weeks Health Concerns Section Related Observation LastModified by Organization Detai ls LastModified Time None Recorded Concern Status LastModified by Organization Details LastModified Time None Recorded Advance Directives Directive None Recorded Payers Insurance Date Sequence Insurance Name Policy Number Policy Youngblood Covered Member ID Youngblood Member ID Guarantor Name 12/06/2023 1 [facility] [id number] 01 Judy Hennessy [id number] Judy Hennessy Notes Date Note Type Note Provider Name and Address Organization Details Recorded Time 3 text/html Foot/Ankle UCReported bypatient.source of patient informationInformation obtained from patient; Patient arrived at Urgent Care ambulatory Location:right; lateral; ankle Probleminjury Severity:moderate Duration:2 weeks Context:twisting Associated Symptoms:no weakness; no numbness; no tingling; no swelling; no redness; no warmth; no ecchymosis Aggravating factors:extension; flexion; standing; walking Alleviating factors:elevation Assistive devicesNone. Previous Treatmentnone Prior Imaging:noneNotes:48 year old female presenting for evaluation of right anterior and lateral ankle pain after accidentally everting the ankle while walking 2 weeks ago. No swelling, bruising, numbness or weakness of the extremity. The pain is worse with palpation, movement and weight bearing. Gina Palumbo MD [address] [place], [address], [place] [facility] 03/10/2023 19:31:03 4 text/html ShoulderReported bypatient.source of patient informationInformation obtained from patient; Patient arrived at Urgent Care ambulatory Hand Dominance:right Location:left; lateral Quality:aching; Radiating pain down left arm on sleeping on left side Severity:mild; pain level 4-5/10 Duration:1 months Timing:gradual Context:cannot identify Alleviating Factors:position change; NSAIDs Aggravating Factors:lifting; ROM; changing clothes; Worse with lying on left side and on raising arm Associated Symptoms:no weakness; no swelling; no redness; no warmth; no ecchymosis; no popping/clicking; no instability; no fever; no chills;numbness;tingling;ra diation down arm Previous InjuryNo prior injury to affected body part Previous Treatmentnone Prior Imaging:none Andrea Che MD [address] [place], [address], [place] - [facility] 12/06/2023 09:16:22 OBGyn Episode No OBEpisode recorded.
== END 2025-03-04 15:10 | disposition home or self-care (01) ==
LOC: HO.MAMMO 15:09
PROVIDERS: PCP Nurse Practitioner Family; Visit Provider Nurse Practitioner Family
DX: Z12.31 Encounter for screening mammogram for malignant neoplasm of breast (principal)
CPT/HCPCS: 77063; 77067

== ENCOUNTER → 2025-03-04 15:15 | Outpatient (BNV) | payer OTHER, SELFPAY | PROVIDERS: PCP Nurse Practitioner Family; Visit Provider Internal Medicine | DX: Z12.31 Encounter for screening mammogram for malignant neoplasm of breast (principal) | CPT/HCPCS: 77063; 77067 ==

== ENCOUNTER 2025-03-18 06:16 | Outpatient (REF) | payer OTHER, SELFPAY ==
[2025-03-18 10:53] LABS: MANUAL DIFF FLAG NO
[2025-03-18 11:00] LABS: Appearance Urine Clear; Glucose Urine UA Negative (Negative); Hematocrit 40.9 % (37.0-47.0); Hemoglobin 13.2 g/dl (12.0-16.0); Imm Gran Abs Auto 0.02 X10*3/uL (0.00-0.03); Imm Gran Pct Auto 0.4 % (0.0-0.4); Lymphocytes Absolute Auto 1.7 X10*3/uL (1.2-4.9); Mean Corpuscular HGB Conc 32.3 g/dl (31.0-35.0); Mean Corpuscular Hemoglobin 27.6 pg (27.0-33.0); Mean Corpuscular Volume 85.6 fL (80.0-98.0); NRBC Abs Auto 0.000 X10*3/uL (0.0-0.012); NRBC Pct Auto 0.0 /100WBC (0.0-0.2); PH 7.0 (5.0-9.0); Platelet Count 306 X10*3/uL (160-400); Red Blood Count 4.78 X10*6/uL (4.20-5.50); Specific Gravity - Urine 1.015 (1.005-1.025); UMIC TRIGGER UACC YES; White Blood Count 5.6 X10*3/uL (4.8-10.8)
[2025-03-18 11:04] LABS: UACC Culture Trigger YES
[2025-03-18 11:28] LABS: Alanine Aminotransferase 11 U/L (0-31); Albumin Level 4.2 g/dL (3.5-5.0); Alkaline Phosphatase 73 U/L (39-117); Anion Gap 10 (12-20); Aspartate Amino Transferase 21 U/L (5-31); Blood Urea Nitrogen 9 mg/dL (9-16); Calcium 8.4 mg/dL (8.4-10.2); Carbon Dioxide 28 mmol/L (22-29); Chloride 105 mmol/L (96-108); Cholesterol 148 mg/dL (<200); Estimated Glomerular Filt Rate > 60; HDL Cholesterol 57 mg/dL (>40); Potassium 3.9 mmol/L (3.3-5.1); Sodium 139 mmol/L (135-145); Total Protein 6.8 g/dL (6.5-8.0); Triglycerides 64 mg/dL (<150)
== END 2025-03-18 06:17 | disposition home or self-care (01) ==
LOC: HO.HMGCLDS 06:16
PROVIDERS: PCP Nurse Practitioner Family; Visit Provider Nurse Practitioner Family
DX: Z00.00 Encounter for general adult medical examination without abnormal findings (principal); E55.9 Vitamin D deficiency, unspecified
CPT/HCPCS: 36415; 80053; 80061; 81001; 82306; 84443; 85025; 87086

== ENCOUNTER 2025-03-22 08:10 | Outpatient (AMB) | payer OTHER, SELFPAY ==
[2025-03-22 08:23] VITALS: BP 110/72; PULSE 61; O2SAT 98; BMI 29.3
--- NOTE | 2025-03-22 08:23 | MHC.PC.OV ---
Vital Signs 03/22/25 08:23 Height 5 ft 4 in Weight 171 lb BMI 29.3 BP 110/72 Blood Pressure Location Lt brachial Position Sitting Pulse 61 Pulse Oximetry (%) 98 Oxygen Delivery Method Room Air Intake Visit Reasons: PE Photo Printer Required: No Accompanied by: Self / Same As Patient Allergies No Known Allergies Allergy (Verified 03/22/25 08:36) Medication List - Last Reconciled 03/22/25 by ODALYS Telles No Known Home Meds Tobacco use date assessed: 03/22/25 Dental Screening Dental Screen Date: 03/22/25 Did you have a dental visit in the last 12 months?: Yes Did you have a dental problem in the last 6 months where you did not have access to dental care?: No Was dental information given to patient?: Patient has dentist HPI PE HPI Details History of Present Illness The patient is a 50-year-old female presenting for a physical examination. She denies experiencing any chest pain, dyspnea, abdominal pain, hematochezia, constipation, or diarrhea. She also denies any suicidal or homicidal ideation and reports doing well overall. Her last colonoscopy was performed in June 2020, and she believes she is on a 10-year follow-up plan, with the next one due in June 2030. Her gynecological care is current, and her mammogram is up to date. Health Maintenance - Colonoscopy performed in June 2020, with a 10-year follow-up plan - Mammogram is up to date Social History Review of Systems - Cardiovascular: Denies chest pain - Respiratory: Denies dyspnea - Gastrointestinal: Denies abdominal pain, hematochezia, constipation, diarrhea - Psychiatric: Denies suicidal ideation, denies homicidal ideation Physical Exam General: Cooperative, healthy appearing, comfortable, no acute distress and well developed Orientation: Patient oriented x3 Limitations: No limitations Head: Normal to inspection Ears: Hearing grossly normal bilaterally Nose: Normal external nose present Face and sinus: Normal facial exam Eyes: Appearance normal, both eyes and all related structures Neck: Normal visual inspection and Yes full ROM Respiratory: Normal respiratory effort and able to speak in complete sentences. Clear to auscultation bilaterally Cardiovascular: Regular rate and rhythm. Normal S1 and S2 GI: Normal to inspection. Soft to palpation and nontender Skin: No rashes or lesions noted Neuro: Patient oriented x3 Extremities: Normal to inspection Results WNL PFSH Surgical History History of bilateral tubal ligation No pertinent past surgical history Family History Maternal Grandfather Colon cancer Social History Housing: House Alcohol intake: never Patient Tobacco Use Status: Never used Tobacco e-Cigarette/Vaping Use: Never Used Second Hand Smoke Exposure: No service: No Current occupational status: employed Current occupation: [employer] Current occupational exposures/hazards: No Cognitive needs: No Hearing needs: No Vision needs: No Female Reproductive History Menstrual Age of Menarche: 13 Questionnaire PHQ-9 Over the last 2 weeks, how often have you been bothered by any of the following problems? 1. Little interest or pleasure in doing things: not at all 2. Feeling down, depressed, or hopeless: not at all 3. Trouble falling or staying asleep, or sleeping too much: not at all 4. Feeling tired or having little energy: not at all 5. Poor appetite or overeating: not at all 6. Feeling bad about yourself - or that you are a failure or have let yourself or your family down: not at all 7. Trouble concentrating on things, such as reading the newspaper or watching television: not at all 8. Moving or speaking so slowly that other people could have noticed. Or the opposite - being so fidgety or restless that you have been moving around a lot more than usual: not at all 9. Thoughts that you would be better off or of hurting yourself in some way: not at all Total score: 0 Depression Screening Interpretation: Negative Depression Screening Done: Yes 44034 - PHQ-9 Billing: Yes Source: Developed by Drs. Jose Lundberg, Brittni Grande, Spencer Arevalo and colleagues, with an educational maykel from [employer]. Thrive Questionnaire Date Thrive assessed: 02/17/24 I am a: Patient What is your living situation today?: I have a steady place to live Within the past 12 months, did the food you bought not last and you didn't have the money to get more?: Never true Within the past 12 months, did you worry whether your food would run out before you got money to buy more?: Never true Do you have trouble paying for medicines?: No Do you have trouble getting transportation to medical appointments?: No Do you have trouble paying your heating and electricity bill?: No Do you have trouble taking care of your child, family member or friend?: No Do you have trouble with day-to-day activities such as bathing, preparing meals, shopping, managing finances, etc.?: No Are you currently unemployed and looking for a job?: No Are you interested in more education?: No Please select the resources that you would like help with: None Currently or been in a relationship where the following occur: No concerns reported THRIVE Score: 0 AUDIT C Alcohol Use Questionnaire (AUDIT-C) 1. How often do you have a drink containing alcohol?: Never Total Score: 0 MANSI-7 AMB Questionnaire MANSI-7 Date MANSI - 7 assessed: 03/22/25 Feeling nervous, anxious, or on edge: 0 = Not at all Not being able to stop or control worryin = Not at all Worrying too much about different things: 0 = Not at all Trouble relaxin = Not at all Being so restless that it is hard to sit still: 0 = Not at all Becoming easily annoyed or irritable: 0 = Not at all Feeling afraid as if something awful might happen: 0 = Not at all Total MANSI-7 score (0-4 normal; 5-9 mild; 10-14 moderate; 15-21 severe): 0 Source: Developed by Drs. Jose Lundberg, Brittni Grande, Spencer Arevalo and colleagues, with an educational maykel from [employer]. MANSI-7 Assessment Billing MANSI-7 Assessment Tool: MANSI-7 Assessment 45585 Physical exam (Primary Care) Vital Signs: Last Vital Signs Pulse 61 03/22/25 08:23 BP 110/72 03/22/25 08:23 Pulse Ox 98 03/22/25 08:23 Oxygen Delivery Method Room Air 03/22/25 08:23 BMI result Body Mass Index 29.3 Tobacco/Smoking Status: Tobacco use Status Tobacco use date assessed 03/22/25 03/22/25 08:29 Patient Tobacco Use Status Never used Tobacco 03/22/25 08:29 e-Cigarette/Vaping Use Never Used 03/22/25 08:29 PHQ-9: PHQ-9 Score PHQ-9: Total score 0 03/22/25 08:29 Depression Screening Interpretation: Negative Thrive Assessment: Date of Thrive Assessment Date Thrive assessed 02/17/24 03/22/25 08:29 Currently or been in a relationship where the following occur: No concerns reported Coding Level of Care Code Est Pt Prev Care 40-64y(16254) Diagnoses Encounter for physical examination Z00.00 Additional Codes MANSI-7 Assessment Billing - MANSI-7 Assessment Tool: MANSI-7 Assessment 20602 ([id number]) PHQ-9 - 07896 - PHQ-9 Billing: Yes ([id number]) Assessment & Plan Assessment & Plan (1) Encounter for physical examination: Code(s): Z00.00 - Encounter for general adult medical examination without abnormal findings Category: Medical Plan .
== END 2025-03-22 09:11 | disposition home or self-care (01) ==
LOC: HO.HMCC 08:10
PROVIDERS: PCP Nurse Practitioner Family; Visit Provider Nurse Practitioner Family
DX: Z00.00 Encounter for general adult medical examination without abnormal findings (principal)

== ENCOUNTER → 2025-03-22 08:10 | Outpatient (BNVA) | payer OTHER, SELFPAY | PROVIDERS: PCP Nurse Practitioner Family; Visit Provider Nurse Practitioner Family | DX: Z00.00 Encounter for general adult medical examination without abnormal findings (principal) | CPT/HCPCS: 96127 ==